=== PATIENT | female | born 1955 | race Caucasian/White ===

== ENCOUNTER → 2022-11-28 10:47 | Outpatient (CLI) | payer MEDICARE, OTHER, SELFPAY ==
--- NOTE | 2022-11-28 | DI.MG.S_ITS ---
BILATERAL DIGITAL SCREENING MAMMOGRAM 3D/2D WITH CAD: 11/28/2022 CLINICAL: Baseline exam. No prior exams were available for comparison. There are scattered areas of fibroglandular density in both breasts (category b / 25%-50% glandular tissue). Current study was also evaluated with a Computer Aided Detection (CAD) system. No significant masses, calcifications, or other findings are seen in either breast. IMPRESSION: NEGATIVE There is no mammographic evidence of malignancy. A 1 year screening mammogram is recommended. Based on the Tyrer Cuzick model (a risk assessment model) the patient's lifetime risk is 5.9% and her 10 year risk is 3.5%. According to the ACR, ACS, and NCCN guidelines, an annual breast MRI exam along with mammogram is recommended if the patient's lifetime risk is 20% or greater. This exam was interpreted at Station ID: [id number]. NOTE: For mammograms, a report in lay terms will be sent to the patient. Approximately 15% of breast malignancies will not be visualized mammographically. In the management of a palpable breast mass, a negative mammogram must not discourage biopsy of a clinically suspicious lesion. Electronically Signed By: Emile Lazo M.D., jr/adelso:11/28/2022 12:18:03 letter sent: Normal Exam ACR BI-RADS Category 1: Negative [id number]
== END ==
PROVIDERS: PCP Family Medicine; Referring Provider Family Medicine; Visit Provider Family Medicine
DX: Z12.31 Encounter for screening mammogram for malignant neoplasm of breast (principal)
CPT/HCPCS: 77063; 77067

== ENCOUNTER → 2023-01-02 10:51 | Outpatient (CLI) | payer MEDICARE, OTHER, SELFPAY ==
[2023-01-02 11:53] LABS: Hemoglobin 14.6 g/dL (12.0-16.0)
== END ==
PROVIDERS: Family Medicine; PCP Family Medicine; Referring Provider Surgery; Visit Provider Surgery
DX: Z01.818 Encounter for other preprocedural examination (principal); D64.9 Anemia, unspecified
CPT/HCPCS: 36415; 85014; 85018

== ENCOUNTER → 2023-03-26 11:35 | Outpatient (CLI) | payer MEDICARE, OTHER, SELFPAY ==
[2023-03-26 20:02] LABS: Add Manual Diff / Slide Review NO; Basophils Absolute Auto 0 /uL (0-100); Basophils Percent Auto 0.8 % (0-2); Eosinophils Absolute Auto 100 /uL (0-450); Eosinophils Percent Auto 2.1 % (2-4); Hematocrit 41.1 % (36-46); Hemoglobin 14.1 g/dL (12.0-16.0); Lymphocytes Absolute Auto 1200 /uL (1100-4500); Lymphocytes Percent Auto 21.8 % (25-40); Mean Corpuscular HGB Conc 34.2 % (30-36); Mean Corpuscular Hemoglobin 31.5 PG (26-34); Monocytes Absolute Auto 600 /uL (0-900); Monocytes Percent Auto 9.9 % (3-14); Neutrophils Absolute Auto 3800 /uL (1500-7000); Neutrophils Percent Auto 65.4 % (50-75); Platelet Count 199 X10^3/uL (150-400); Red Blood Cell Count 4.47 X10^6/uL (4.0-5.2); Red Cell Distribution Width 12.8 % (11.6-14.8); White Blood Cell Count 5.7 X10^3/uL (4.5-11.0)
[2023-03-26 20:07] LABS: Alanine Aminotransferase 20 IU/L (<35); Albumin 4.2 g/dL (3.5-5.0); Albumin Globulin Ratio 1.7 (1.0-2.8); Alkaline Phosphatase 82 U/L (38-126); Aspartate Aminotransferase 25 IU/L (14-36); BUN Creatinine Ratio 16.3 (6-22); Bilirubin Total 0.6 mg/dL (0.2-1.3); Blood Urea Nitrogen 14 mg/dL (7-17); Calcium 9.4 mg/dL (8.4-10.2); Carbon Dioxide 25 mmol/L (22-32); Chloride 103 mmol/L (98-107); Estimated Glomerular Filt Rate > 60 mL/min (>60); Globulin 2.5 g/dL (1.7-4.1); Glucose 98 mg/dL (80-110); HEMOLYSIS < 15 (0-50); Potassium 4.3 mmol/L (3.4-5.1); Sodium 135 mmol/L (137-145); Total Protein 6.7 g/dL (6.3-8.2)
== END ==
PROVIDERS: PCP Family Medicine; Visit Provider Family Medicine
DX: R10.11 Right upper quadrant pain (principal)
CPT/HCPCS: 80053; 85025

== ENCOUNTER → 2023-04-01 11:04 | Outpatient (CLI) | payer MEDICARE, OTHER, SELFPAY ==
--- NOTE | 2023-04-01 11:05 | DI.US.S_ITS ---
PROCEDURE: US ABDOMEN LIMITED INDICATIONS: RUQ PAIN TECHNIQUE: Real-time scanning was performed of the abdominal and retroperitoneal organs, with image documentation. COMPARISON: None. FINDINGS: Liver: Homogeneous echotexture. No evidence of focal mass lesion. No intra hepatic biliary ductal dilatation Gallbladder: Sonolucent without cholelithiasis. No gallbladder wall thickening. No pericholecystic fluid or Hebert's sign. Common Bile Duct: 1.4 mm. Pancreas: Unremarkable as visualized IMPRESSION: 1. Unremarkable right upper quadrant ultrasound Approved by: Leo Olson M.D. on 04/01/2023 at 11:23
== END ==
PROVIDERS: PCP Family Medicine; Referring Provider Family Medicine; Visit Provider Family Medicine
DX: R10.11 Right upper quadrant pain (principal)
CPT/HCPCS: 76705

== ENCOUNTER 2023-06-26 09:52 | Emergency (ER) | payer MEDICARE, OTHER, SELFPAY ==
[2023-06-26 09:55] VITALS: BP 138/61; PULSE 82; RESP 15; TEMP 36.7; O2SAT 100; BMI 32.3
--- NOTE | 2023-06-26 09:59 | PC.NURSE ---
Pt denies injury,pt denies loss bowel/bladder,denies urinary sx.
--- NOTE | 2023-06-26 10:23 | ED.BACK ---
HPI - Back Pain/Injury General Chief Complaint: Back Pain/Injury Stated Complaint: Back pain, no trauma Time Seen by Provider: 06/26/23 09:59 Source: patient Mode of arrival: Ambulatory Limitations: no limitations History of Present Illness HPI Narrative: Patient is a 67-year-old female who is here for evaluation of bilateral with the right being greater than left lower back discomfort. She states that it started earlier this week after she spent some time outside working in the garden. Did not fall. She has had lower back surgeries in the past. No fevers. No urinary symptoms. No change in bowel habits. No abdominal pain. Has been taking Advil but she states last night she had a difficult time sleeping and specifically moving around. Related Data Previous Rx's Medication Instructions Recorded albuterol sulfate 90 mcg/actuation 2 puff inhalation Q4-6H PRN 05/05/23 aerosol inhaler shortness of breath or wheezing #8.5 grams inhalational spacing device #1 ea 05/05/23 (BreatheRite MDI Spacer) prednisone 20 mg tablet See Rx Instructions PO DAILY #12 05/05/23 tabs codeine 10 mg-guaifenesin 100 mg/5 10 ml PO Q4-6H PRN cough #237 mL 05/08/23 mL oral liquid nitrofurantoin macrocrystal 100 mg 100 mg PO Q12H #14 caps 05/09/23 capsule estradiol 0.0375 mg/24 hr weekly 1 patch transdermal QWEEK #12 ea 05/13/23 transdermal patch cyclobenzaprine 10 mg tablet 10 mg PO TID PRN muscle spasm #21 06/26/23 tabs tramadol 50 mg tablet 50 mg PO Q6H PRN pain #21 tabs 06/26/23 Allergies Allergy/AdvReac Type Severity Reaction Status Date / Time No Known Drug Allergies Allergy Verified 06/26/23 09:55 Review of Systems Constitutional Constitutional: Reports system reviewed and no additional complaints, except as documented Cardiovascular Cardiovascular: Reports system reviewed and no additional complaints, except as documented Respiratory Respiratory: Reports system reviewed and no additional complaints, except as documented Gastrointestinal Gastrointestinal: Reports system reviewed and no additional complaints, except as documented Genitourinary Genitourinary: Reports system reviewed and no additional complaints, except as documented Integumentary/Breasts Skin/Breast: Reports system reviewed and no additional complaints, except as documented Patient History Medical History Hot flashes due to menopause Menopause Right rotator cuff tendinitis Surgical History (Updated 05/05/23 @ 22:24 by Lizzy Werner MD) History of hysterectomy Family History (Updated 05/05/23 @ 22:25 by Lizzy Werner MD) Sister Asthma Social History Smoking Status: Never smoker additional social history: Denies tobacco use 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 She does have bilateral lower back discomfort with what appears to be muscle spasms specifically in the right paraspinal region. Neuro General: patient alert and patient awake Extrem General: normal to inspection and capillary refill normal Course Vital Signs Vital signs: Vital Signs - 8 hr 06/26/23 09:55 Temperature 98.0 F Pulse Rate 82 Respiratory Rate 15 Blood Pressure 138/61 Pulse Oximetry 100 Oxygen Delivery Method Room Air MDM - Back Pain/Injury MDM Narrative Medical decision making narrative: Physical exam today is most consistent with a lower back muscle spasm. She does have bilateral symptoms but it is right is greater than the left. Plan to be is to send her home with muscle relaxers and also pain medication. She was given return precautions follow-up instructions. She expressed understanding and agreement. Discharge Plan Departure Patient Disposition: Home Clinical Impression: Lower back pain, Muscle spasm Instructions: DI for Low Back Pain Activity Restrictions/Additional Instructions: I do recommend that you use the muscle relaxers in the pain medication as directed. I also recommend you contact your primary provider for follow-up as you may benefit from a referral to see Physical therapy. Return to the emergency department for new symptoms. Prescriptions: New cyclobenzaprine 10 mg tablet 10 mg PO TID PRN (Reason: muscle spasm) Qty: 21 0RF tramadol 50 mg tablet 50 mg PO Q6H PRN (Reason: pain) Qty: 21 0RF No Action codeine-guaifenesin 10-100 mg/5 mL liquid 10 ml PO Q4-6H PRN (Reason: cough) Qty: 237 0RF estradiol 0.0375 mg/24 hr patch weekly 1 patch transdermal QWEEK Qty: 12 3RF Rx Instructions: Sandoz brand. prednisone 20 mg tablet See Rx Instructions PO DAILY Qty: 12 0RF Rx Instructions: 3 tabs po Qd for 2d(take all tabs at same time), then 2 tabs qd for 3d. orally daily; albuterol sulfate 90 mcg/actuation HFA aerosol inhaler 2 puff inhalation Q4-6H PRN (Reason: shortness of breath or wheezing) Qty: 8.5 2RF Rx Instructions: or cough (DME) BreatheRite MDI Spacer Spacer See Rx Instructions .Route Qty: 1 1RF Rx Instructions: As directed with inhaler nitrofurantoin macrocrystal 100 mg capsule 100 mg PO Q12H Qty: 14 0RF Rx Instructions: must administer with a meal/food for 7 days for urine infection Referrals: Jarad Ramos MD [Primary Care Provider] - Stand Alone Forms: Patient Portal/API
== END 2023-06-26 10:35 | disposition home or self-care (01) ==
PROVIDERS: Emergency Provider Emergency Medicine; PCP Family Medicine
DX: M54.50 Low back pain, unspecified (principal); M62.830 Muscle spasm of back
CPT/HCPCS: 99281; 99283

== ENCOUNTER 2023-08-05 09:45 | Emergency (ER) | payer MEDICARE, OTHER, SELFPAY ==
[2023-08-05] VITALS (15 sets, daily range): BP systolic 139–160; BP diastolic 62–79; PULSE 80–101; RESP 16–20; TEMP 36.8; O2SAT 93–99; BMI 32.3
--- NOTE | 2023-08-05 10:17 | DI.RAD.S_ITS ---
PROCEDURE: XR CHEST 2V INDICATIONS: cough x 2 weeks TECHNIQUE: 2 views of the chest were acquired. COMPARISON: [facility] ([place]), CR, XR CHEST 2V, 05/05/2023, 16:05. FINDINGS: Surgical changes and devices: None. Lungs and pleura: Lungs are clear. No pleural effusions or pneumothorax. Mediastinum: Mediastinal contours are normal. Heart size is normal. Bones and chest wall: No suspicious bony abnormalities. Soft tissues appear unremarkable. IMPRESSION: No acute radiographic abnormality. Dictated by: Marin Roche M.D. on 08/05/2023 at 11:41 Approved by: Marin Roche M.D. on 08/05/2023 at 11:42
[2023-08-05] MEDS: BENZONATATE 100 MG CAPSULE PO (10:25)
[2023-08-05] MEDS: ALBUTEROL 2.5 MG/3 ML NEB (ADULT) INH (11:11)
[2023-08-05] MEDS: ALBUTEROL/IPRATROPIUM 3 ML AMPUL INH (13:30)
[2023-08-05] MEDS: ALBUTEROL 2.5 MG/3 ML NEB (ADULT) 20 MG INH (13:59)
--- NOTE | 2023-08-05 14:19 | ED.URI ---
HPI - URI/Sore Throat <Destiny Riggins PA-C - Last Filed: 08/05/23 16:23> General Chief Complaint: Upper Respiratory Symptoms Stated Complaint: breathing issue T-14 getting worse Time Seen by Provider: 08/05/23 13:35 History of Present Illness HPI Narrative: Patient is a 68-year-old female with a remote history of asthma who presents with cough, chest congestion, and shortness of breath. This has been going on for 2 weeks. She reports it is difficult to do her daily activities because she becomes short of breath. She denies fever or chills, chest pain, nausea/vomiting, swelling in her extremities. She has no cardiac history. She reports an episode of similar respiratory symptoms in April of this year, where she was seen at the [facility]. He received oral steroids, albuterol inhaler, and antibiotics, which she reports did not really help in her opinion and the symptoms went away after 1 month. She is not a smoker. Related Data Previous Rx's Medication Instructions Recorded albuterol sulfate 90 mcg/actuation 2 puff inhalation Q4-6H PRN 05/05/23 aerosol inhaler shortness of breath or wheezing #8.5 grams inhalational spacing device #1 ea 05/05/23 (BreatheRite MDI Spacer) estradiol 0.0375 mg/24 hr weekly 1 patch transdermal QWEEK #12 ea 05/13/23 transdermal patch albuterol sulfate 90 mcg/actuation 2 puff inhalation Q4H PRN 08/05/23 aerosol inhaler shortness of breath or wheezing #8.5 grams codeine 10 mg-guaifenesin 100 mg/5 10 ml PO .qhs PRN cough #70 mL 08/05/23 mL oral liquid prednisone 50 mg tablet 50 mg PO DAILY #5 tabs 08/05/23 Allergies Allergy/AdvReac Type Severity Reaction Status Date / Time No Known Drug Allergies Allergy Verified 08/05/23 10:16 Review of Systems <Destiny Riggins PA-C - Last Filed: 08/05/23 16:23> Review of Systems ROS Unobtainable: All systems reviewed & are unremarkable except as noted in HPI and below Patient History <Destiny Riggins PA-C - Last Filed: 08/05/23 16:23> Medical History Hot flashes due to menopause Menopause Right rotator cuff tendinitis Surgical History History of hysterectomy Family History Sister Asthma Social History Smoking Status: Never smoker additional social history: Denies tobacco use 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 Well-developed patient, in moderate respiratory distress. NEURO: AOx3. HEAD: Atraumatic. Normocephalic. EYES: Pupils equal round and reactive. Extraocular motions intact. No scleral icterus. No injection or drainage. ENT: Nose without bleeding or purulent drainage. Airway patent. CARDIOVASCULAR: Regular rate and rhythm without murmurs, gallops, or rubs. RESPIRATORY: Diffuse rhonchi and mild expiratory wheeze on assessment after 1 DuoNeb and 1 albuterol neb. patient is quite dyspneic during our conversation. GASTROINTESTINAL: Abdomen soft, non-tender, nondistended. EXTREMITIES: No edema or joint tenderness. SKIN: No rash or erythema of visible areas Initial Vital Signs Initial Vital Signs: Vital Signs Temperature 98.2 F 08/05/23 10:12 Pulse Rate 89 08/05/23 10:12 Respiratory Rate 16 08/05/23 10:12 Blood Pressure 146/79 H 08/05/23 10:12 Pulse Oximetry 99 08/05/23 10:12 Oxygen Delivery Method Room Air 08/05/23 10:12 <Monica Fortune DO - Last Filed: 08/12/23 07:31> Initial Vital Signs Initial Vital Signs: Vital Signs Temperature 98.2 F 08/05/23 10:12 Pulse Rate 89 08/05/23 10:12 Respiratory Rate 16 08/05/23 10:12 Blood Pressure 146/79 H 08/05/23 10:12 Pulse Oximetry 99 08/05/23 10:12 Oxygen Delivery Method Room Air 08/05/23 10:12 Course <Destiny Riggins PA-C - Last Filed: 08/05/23 16:23> Orders Ordered: Discontinued Medications Albuterol (Albuterol 2.5 Mg/3 Ml Neb (Adult)) 2.5 mg INH NOW ONE Stop: 08/05/23 10:23 Last Admin: 08/05/23 11:11 Dose: 2.5 mg Documented By: ABDOUL Albuterol (Albuterol 2.5 Mg/3 Ml Neb (Adult)) 20 mg INH NOW ONE Stop: 08/05/23 13:56 Last Admin: 08/05/23 13:59 Dose: 20 mg Documented By: ABDOUL Albuterol/Ipratropium (Albuterol/Ipratropium 3 Ml Ampul) 3 ml INH NOW ONE Stop: 08/05/23 13:27 Last Admin: 08/05/23 13:30 Dose: 3 ml Documented By: ABDOUL Benzonatate (Benzonatate 100 Mg Capsule) 100 mg PO NOW ONE Stop: 08/05/23 10:23 Last Admin: 08/05/23 10:25 Dose: 100 mg Documented By: KANDI Vital Signs Vital signs: Vital Signs - 8 hr 08/05/23 10:12 08/05/23 11:12 08/05/23 11:15 Temperature 98.2 F Pulse Rate 89 87 80 Respiratory Rate 16 20 20 Blood Pressure 146/79 H 144/70 H Pulse Oximetry 99 97 98 Oxygen Delivery Method Room Air Room Air Room Air Oxygen Flow Rate 0 Fraction of Inspired Oxygen 21 08/05/23 11:14 08/05/23 11:30 08/05/23 11:30 Temperature Pulse Rate 90 83 Respiratory Rate Blood Pressure 141/62 H Pulse Oximetry 97 95 Oxygen Delivery Method Oxygen Flow Rate Fraction of Inspired Oxygen 08/05/23 12:00 08/05/23 12:00 08/05/23 12:30 Temperature Pulse Rate 82 Respiratory Rate Blood Pressure 139/63 139/65 Pulse Oximetry 96 Oxygen Delivery Method Oxygen Flow Rate Fraction of Inspired Oxygen 08/05/23 12:30 08/05/23 13:30 08/05/23 14:04 Temperature Pulse Rate 82 87 85 Respiratory Rate 18 18 Blood Pressure Pulse Oximetry 96 99 95 Oxygen Delivery Method Room Air Room Air Room Air Oxygen Flow Rate 0 0 Fraction of Inspired Oxygen 21 21 08/05/23 13:32 08/05/23 14:00 08/05/23 14:23 Temperature Pulse Rate 91 H 100 H Respiratory Rate Blood Pressure Pulse Oximetry 99 96 95 Oxygen Delivery Method Room Air Oxygen Flow Rate Fraction of Inspired Oxygen 08/05/23 14:23 08/05/23 14:30 08/05/23 14:30 Temperature Pulse Rate 94 H Respiratory Rate Blood Pressure 160/74 H 139/63 Pulse Oximetry 93 Oxygen Delivery Method Oxygen Flow Rate Fraction of Inspired Oxygen 08/05/23 15:00 08/05/23 15:00 08/05/23 15:30 Temperature Pulse Rate 94 H Respiratory Rate Blood Pressure 144/65 H 149/67 H Pulse Oximetry 96 Oxygen Delivery Method Oxygen Flow Rate Fraction of Inspired Oxygen 08/05/23 15:30 Temperature Pulse Rate 101 H Respiratory Rate Blood Pressure Pulse Oximetry 98 Oxygen Delivery Method Oxygen Flow Rate Fraction of Inspired Oxygen <Monica Fortune DO - Last Filed: 08/12/23 07:31> Orders Ordered: Discontinued Medications Albuterol (Albuterol 2.5 Mg/3 Ml Neb (Adult)) 2.5 mg INH NOW ONE Stop: 08/05/23 10:23 Last Admin: 08/05/23 11:11 Dose: 2.5 mg Documented By: ABDOUL Albuterol (Albuterol 2.5 Mg/3 Ml Neb (Adult)) 20 mg INH NOW ONE Stop: 08/05/23 13:56 Last Admin: 08/05/23 13:59 Dose: 20 mg Documented By: ABDOUL Albuterol/Ipratropium (Albuterol/Ipratropium 3 Ml Ampul) 3 ml INH NOW ONE Stop: 08/05/23 13:27 Last Admin: 08/05/23 13:30 Dose: 3 ml Documented By: ABDOUL Benzonatate (Benzonatate 100 Mg Capsule) 100 mg PO NOW ONE Stop: 08/05/23 10:23 Last Admin: 08/05/23 10:25 Dose: 100 mg Documented By: KANDI Vital Signs Vital signs: Vital Signs - 8 hr 08/05/23 10:12 08/05/23 11:12 08/05/23 11:15 Temperature 98.2 F Pulse Rate 89 87 80 Respiratory Rate 16 20 20 Blood Pressure 146/79 H 144/70 H Pulse Oximetry 99 97 98 Oxygen Delivery Method Room Air Room Air Room Air Oxygen Flow Rate 0 Fraction of Inspired Oxygen 21 08/05/23 11:14 08/05/23 11:30 08/05/23 11:30 Temperature Pulse Rate 90 83 Respiratory Rate Blood Pressure 141/62 H Pulse Oximetry 97 95 Oxygen Delivery Method Oxygen Flow Rate Fraction of Inspired Oxygen 08/05/23 12:00 08/05/23 12:00 08/05/23 12:30 Temperature Pulse Rate 82 Respiratory Rate Blood Pressure 139/63 139/65 Pulse Oximetry 96 Oxygen Delivery Method Oxygen Flow Rate Fraction of Inspired Oxygen 08/05/23 12:30 08/05/23 13:30 08/05/23 14:04 Temperature Pulse Rate 82 87 85 Respiratory Rate 18 18 Blood Pressure Pulse Oximetry 96 99 95 Oxygen Delivery Method Room Air Room Air Room Air Oxygen Flow Rate 0 0 Fraction of Inspired Oxygen 21 21 08/05/23 13:32 08/05/23 14:00 08/05/23 14:23 Temperature Pulse Rate 91 H 100 H Respiratory Rate Blood Pressure Pulse Oximetry 99 96 95 Oxygen Delivery Method Room Air Oxygen Flow Rate Fraction of Inspired Oxygen 08/05/23 14:23 08/05/23 14:30 08/05/23 14:30 Temperature Pulse Rate 94 H Respiratory Rate Blood Pressure 160/74 H 139/63 Pulse Oximetry 93 Oxygen Delivery Method Oxygen Flow Rate Fraction of Inspired Oxygen 08/05/23 15:00 08/05/23 15:00 08/05/23 15:30 Temperature Pulse Rate 94 H Respiratory Rate Blood Pressure 144/65 H 149/67 H Pulse Oximetry 96 Oxygen Delivery Method Oxygen Flow Rate Fraction of Inspired Oxygen 08/05/23 15:30 Temperature Pulse Rate 101 H Respiratory Rate Blood Pressure Pulse Oximetry 98 Oxygen Delivery Method Oxygen Flow Rate Fraction of Inspired Oxygen MDM - URI/Sore Throat <Destiny Riggins PA-C - Last Filed: 08/05/23 16:23> Lab Data 08/05/23 14:10 08/05/23 14:10 Labs: Lab Results 08/05/23 08/05/23 08/05/23 Range/Units 10:18 14:00 14:10 WBC 7.4 (4.5-11.0) X10^3/uL RBC 4.50 (4.0-5.2) X10^6/uL Hgb 14.1 (12.0-16.0) g/dL Hct 41.7 (36-46) % MCV 92.5 (80-100) fL MCH 31.4 (26-34) PG MCHC 33.9 (30-36) % RDW 13.6 (11.6-14.8) % Plt Count 218 (150-400) X10^3/uL Neut % (Auto) 65.2 (50-75) % Lymph % (Auto) 23.0 L (25-40) % [place] % (Auto) 9.6 (3-14) % Eos % (Auto) 1.7 L (2-4) % Baso % (Auto) 0.5 (0-2) % Neut # (Auto) 4800 (6515-5368) /uL Lymph # (Auto) 1700 (2254-2514) /uL [place] # (Auto) 700 (0-900) /uL Eos # (Auto) 100 (0-450) /uL Baso # (Auto) 0 (0-100) /uL Sodium (137-145) mmol/L Potassium (3.4-5.1) mmol/L Chloride (98-107) mmol/L Carbon Dioxide (22-32) mmol/L BUN (7-17) mg/dL Creatinine (0.52-1.04) mg/dL Estimated GFR (>60) mL/min BUN/Creatinine Ratio (6-22) Glucose (80-110) mg/dL Calcium (8.4-10.2) mg/dL Troponin I (0.01-0.034) ng/mL NT-Pro-B Natriuret Pep (<125) pg/mL Urine RBC None seen (0-5/HPF) Urine WBC 0-1/hpf (0-5/HPF) Ur Squamous Epith Cells 0-1 /hpf (0-5/HPF) Urine Bacteria Few (2-10) H (None) Ur Culture Indicated? Cult not indicated Chlamy pneumoniae PCR Not detected (Not Detect) Adenovirus (PCR) Not detected (Not Detect) B. pertussis DNA (PCR) Not detected (Not Detecte) B.parapertussis DNA PCR Not detected (Not Detecte) Coronavirus OC43 (PCR) Not detected (Not Detect) Coronavirus HKU1 (PCR) Not detected (Not Detect) Coronavirus 229E (PCR) Not detected (Not Detect) SARS-CoV-2 (PCR) Not detected (Not Detecte) Coronavirus NL63 (PCR) Not detected (Not Detect) Human Metapneumovir PCR Not detected (Not Detect) Influenza Type A (PCR) Not detected (Not Detect) Influenza Type B (PCR) Not detected (Not Detect) M. pneumoniae (PCR) Not detected (Not Detect) Parainfluenza 1 (PCR) Not detected (Not Detect) Parainfluenza 2 (PCR) Not detected (Not Detect) Parainfluenza 3 (PCR) Not detected (Not Detect) Parainfluenza 4 (PCR) Not detected (Not Detect) RSV (PCR) Not detected (Not Detect) Entero/Rhino (PCR) Not detected (Not Detect) 08/05/23 08/05/23 Range/Units 14:10 14:10 WBC (4.5-11.0) X10^3/uL RBC (4.0-5.2) X10^6/uL Hgb (12.0-16.0) g/dL Hct (36-46) % MCV (80-100) fL MCH (26-34) PG MCHC (30-36) % RDW (11.6-14.8) % Plt Count (150-400) X10^3/uL Neut % (Auto) (50-75) % Lymph % (Auto) (25-40) % [place] % (Auto) (3-14) % Eos % (Auto) (2-4) % Baso % (Auto) (0-2) % Neut # (Auto) (4427-4434) /uL Lymph # (Auto) (1916-1904) /uL [place] # (Auto) (0-900) /uL Eos # (Auto) (0-450) /uL Baso # (Auto) (0-100) /uL Sodium 137 (137-145) mmol/L Potassium 3.4 (3.4-5.1) mmol/L Chloride 104 (98-107) mmol/L Carbon Dioxide 23 (22-32) mmol/L BUN 14 (7-17) mg/dL Creatinine 0.86 (0.52-1.04) mg/dL Estimated GFR > 60 (>60) mL/min BUN/Creatinine Ratio 16.3 (6-22) Glucose 120 H (80-110) mg/dL Calcium 9.2 (8.4-10.2) mg/dL Troponin I < 0.012 (0.01-0.034) ng/mL NT-Pro-B Natriuret Pep 28 (<125) pg/mL Urine RBC (0-5/HPF) Urine WBC (0-5/HPF) Ur Squamous Epith Cells (0-5/HPF) Urine Bacteria (None) Ur Culture Indicated? Chlamy pneumoniae PCR (Not Detect) Adenovirus (PCR) (Not Detect) B. pertussis DNA (PCR) (Not Detecte) B.parapertussis DNA PCR (Not Detecte) Coronavirus OC43 (PCR) (Not Detect) Coronavirus HKU1 (PCR) (Not Detect) Coronavirus 229E (PCR) (Not Detect) SARS-CoV-2 (PCR) (Not Detecte) Coronavirus NL63 (PCR) (Not Detect) Human Metapneumovir PCR (Not Detect) Influenza Type A (PCR) (Not Detect) Influenza Type B (PCR) (Not Detect) M. pneumoniae (PCR) (Not Detect) Parainfluenza 1 (PCR) (Not Detect) Parainfluenza 2 (PCR) (Not Detect) Parainfluenza 3 (PCR) (Not Detect) Parainfluenza 4 (PCR) (Not Detect) RSV (PCR) (Not Detect) Entero/Rhino (PCR) (Not Detect) Urine Dip Bedside Urine Glucose Negative Bedside Urine Bilirubin - Negative Bedside Urine Ketone - Negative Urine Specific [place] 1.005 Bedside Urine Occult Blood +/- Bedside Urine pH 6.0 Bedside Urine Protein - Negative Bedside Urine Urobilinogen - Negative Bedside Urine Nitrite - Negative Bedside Urine Leukocytes - Negative Esterase Imaging Data Chest x-ray: Radiologist's Impression: PROCEDURE:? XR CHEST 2V ? INDICATIONS:? cough x 2 weeks ? TECHNIQUE:? 2 views of the chest were acquired.? ? COMPARISON:? [facility] ([facility]), CR, XR CHEST 2V, 05/05/2023, 16:05. ? FINDINGS:? ? Surgical changes and devices:? None.? ? Lungs and pleura:? Lungs are clear.? No pleural effusions or pneumothorax.? ? Mediastinum:? Mediastinal contours are normal.? Heart size is normal.? ? Bones and chest wall:? No suspicious bony abnormalities.? Soft tissues appear unremarkable.? ? ? IMPRESSION:? No acute radiographic abnormality. ? ? Dictated by: Marin Roche M.D. on 08/05/2023 at 11:41 ? ? Approved by: Marin Roche M.D. on 08/05/2023 at 11:42 ? MDM Narrative Medical decision making narrative: Multiple etiologies for patient's symptoms considered including, but not limited to: Asthma exacerbation, pneumonia, viral upper respiratory infection, CHF. Chest x-ray without any focal infiltrate, generalized haziness bilaterally. Respiratory status not much improved after DuoNeb and 1 albuterol neb; will trial continuous neb. will check labs including BNP and troponin, although CHF is less likely. Labs very reassuring, BNP and troponin normal. Viral panel negative. UA checked as patient reports a recent foul odor from her urine; urine dip reassuring. Respiratory status much improved after continuous albuterol neb. patient feels better as well. Will treat with 5 day course of oral steroids, home albuterol MDI, and codeine cough syrup for night for suspected asthma exacerbation. Patient's symptoms improved over duration of stay with above-stated therapies. Findings and discharge diagnosis discussed with patient/family followed by verbalization of understanding Return precautions discussed with patient/family whom verbalize understanding of diagnosis and plan <Monica Fortune, DO - Last Filed: 08/12/23 07:31> Lab Data Labs: Lab Results 08/05/23 08/05/23 08/05/23 Range/Units 10:18 14:00 14:10 WBC 7.4 (4.5-11.0) X10^3/uL RBC 4.50 (4.0-5.2) X10^6/uL Hgb 14.1 (12.0-16.0) g/dL Hct 41.7 (36-46) % MCV 92.5 (80-100) fL MCH 31.4 (26-34) PG MCHC 33.9 (30-36) % RDW 13.6 (11.6-14.8) % Plt Count 218 (150-400) X10^3/uL Neut % (Auto) 65.2 (50-75) % Lymph % (Auto) 23.0 L (25-40) % [place] % (Auto) 9.6 (3-14) % Eos % (Auto) 1.7 L (2-4) % Baso % (Auto) 0.5 (0-2) % Neut # (Auto) 4800 (1085-9729) /uL Lymph # (Auto) 1700 (5512-9879) /uL [place] # (Auto) 700 (0-900) /uL Eos # (Auto) 100 (0-450) /uL Baso # (Auto) 0 (0-100) /uL Sodium (137-145) mmol/L Potassium (3.4-5.1) mmol/L Chloride (98-107) mmol/L Carbon Dioxide (22-32) mmol/L BUN (7-17) mg/dL Creatinine (0.52-1.04) mg/dL Estimated GFR (>60) mL/min BUN/Creatinine Ratio (6-22) Glucose (80-110) mg/dL Calcium (8.4-10.2) mg/dL Troponin I (0.01-0.034) ng/mL NT-Pro-B Natriuret Pep (<125) pg/mL Urine RBC None seen (0-5/HPF) Urine WBC 0-1/hpf (0-5/HPF) Ur Squamous Epith Cells 0-1 /hpf (0-5/HPF) Urine Bacteria Few (2-10) H (None) Ur Culture Indicated? Cult not indicated Chlamy pneumoniae PCR Not detected (Not Detect) Adenovirus (PCR) Not detected (Not Detect) B. pertussis DNA (PCR) Not detected (Not Detecte) B.parapertussis DNA PCR Not detected (Not Detecte) Coronavirus OC43 (PCR) Not detected (Not Detect) Coronavirus HKU1 (PCR) Not detected (Not Detect) Coronavirus 229E (PCR) Not detected (Not Detect) SARS-CoV-2 (PCR) Not detected (Not Detecte) Coronavirus NL63 (PCR) Not detected (Not Detect) Human Metapneumovir PCR Not detected (Not Detect) Influenza Type A (PCR) Not detected (Not Detect) Influenza Type B (PCR) Not detected (Not Detect) M. pneumoniae (PCR) Not detected (Not Detect) Parainfluenza 1 (PCR) Not detected (Not Detect) Parainfluenza 2 (PCR) Not detected (Not Detect) Parainfluenza 3 (PCR) Not detected (Not Detect) Parainfluenza 4 (PCR) Not detected (Not Detect) RSV (PCR) Not detected (Not Detect) Entero/Rhino (PCR) Not detected (Not Detect) 08/05/23 08/05/23 Range/Units 14:10 14:10 WBC (4.5-11.0) X10^3/uL RBC (4.0-5.2) X10^6/uL Hgb (12.0-16.0) g/dL Hct (36-46) % MCV (80-100) fL MCH (26-34) PG MCHC (30-36) % RDW (11.6-14.8) % Plt Count (150-400) X10^3/uL Neut % (Auto) (50-75) % Lymph % (Auto) (25-40) % [place] % (Auto) (3-14) % Eos % (Auto) (2-4) % Baso % (Auto) (0-2) % Neut # (Auto) (3746-6613) /uL Lymph # (Auto) (0612-4029) /uL [place] # (Auto) (0-900) /uL Eos # (Auto) (0-450) /uL Baso # (Auto) (0-100) /uL Sodium 137 (137-145) mmol/L Potassium 3.4 (3.4-5.1) mmol/L Chloride 104 (98-107) mmol/L Carbon Dioxide 23 (22-32) mmol/L BUN 14 (7-17) mg/dL Creatinine 0.86 (0.52-1.04) mg/dL Estimated GFR > 60 (>60) mL/min BUN/Creatinine Ratio 16.3 (6-22) Glucose 120 H (80-110) mg/dL Calcium 9.2 (8.4-10.2) mg/dL Troponin I < 0.012 (0.01-0.034) ng/mL NT-Pro-B Natriuret Pep 28 (<125) pg/mL Urine RBC (0-5/HPF) Urine WBC (0-5/HPF) Ur Squamous Epith Cells (0-5/HPF) Urine Bacteria (None) Ur Culture Indicated? Chlamy pneumoniae PCR (Not Detect) Adenovirus (PCR) (Not Detect) B. pertussis DNA (PCR) (Not Detecte) B.parapertussis DNA PCR (Not Detecte) Coronavirus OC43 (PCR) (Not Detect) Coronavirus HKU1 (PCR) (Not Detect) Coronavirus 229E (PCR) (Not Detect) SARS-CoV-2 (PCR) (Not Detecte) Coronavirus NL63 (PCR) (Not Detect) Human Metapneumovir PCR (Not Detect) Influenza Type A (PCR) (Not Detect) Influenza Type B (PCR) (Not Detect) M. pneumoniae (PCR) (Not Detect) Parainfluenza 1 (PCR) (Not Detect) Parainfluenza 2 (PCR) (Not Detect) Parainfluenza 3 (PCR) (Not Detect) Parainfluenza 4 (PCR) (Not Detect) RSV (PCR) (Not Detect) Entero/Rhino (PCR) (Not Detect) Urine Dip Bedside Urine Glucose Negative Bedside Urine Bilirubin - Negative Bedside Urine Ketone - Negative Urine Specific [place] 1.005 Bedside Urine Occult Blood +/- Bedside Urine pH 6.0 Bedside Urine Protein - Negative Bedside Urine Urobilinogen - Negative Bedside Urine Nitrite - Negative Bedside Urine Leukocytes - Negative Esterase Discharge Plan Departure Patient Disposition: Home Clinical Impression: Asthma exacerbation Qualifiers: Asthma severity: moderate Instructions: DI for Asthma -- Adult Activity Restrictions/Additional Instructions: *You have been diagnosed with asthma exacerbation. I will send prescriptions for oral steroids to calm the inflammation in your lungs and an albuterol inhaler to use when you are feeling short of breath. I have also send a cough syrup to use at night. If you are not seeing improvement after 3 days or develop chest pain or significant shortness of breath or fever, please seek care in the clinic or emergency room. *What to do: *Please continue to take your regular medications as directed. [x ] New medication prescriptions sent to your pharmacy: [facility] [ ] New medication written as a paper prescription [ ] No new medications given *Please follow up with your primary care provider in 2-3 days, call for an appointment. Let them know you were seen in the Emergency Department and that we ask that you be seen in follow up. We will electronically transmit a record of today's note if your PCP is in our system *If you do not have a primary care provider please contact the [facility] Resource line at [phone]. They will ask some questions about your medical history and help get you set up with a doctor in the community. *Return to Emergency Department if you should have any new, worsening or concerning symptoms, such as [fever greater than 101 F, shaking chills, worsening pain, persistent vomiting or other concerning symptoms]. Prescriptions: New prednisone 50 mg tablet 50 mg PO DAILY Qty: 5 0RF albuterol sulfate 90 mcg/actuation HFA aerosol inhaler 2 puff inhalation Q4H PRN (Reason: shortness of breath or wheezing) Qty: 8.5 2RF Rx Instructions: use with spacer codeine-guaifenesin 10-100 mg/5 mL liquid 10 ml PO .qhs PRN (Reason: cough) Qty: 70 0RF No Action estradiol 0.0375 mg/24 hr patch weekly 1 patch transdermal QWEEK Qty: 12 3RF Rx Instructions: Sandoz brand. albuterol sulfate 90 mcg/actuation HFA aerosol inhaler 2 puff inhalation Q4-6H PRN (Reason: shortness of breath or wheezing) Qty: 8.5 2RF Rx Instructions: or cough (DME) BreatheRite MDI Spacer Spacer See Rx Instructions .Route Qty: 1 1RF Rx Instructions: As directed with inhaler Referrals: Jarad Ramos MD [Primary Care Provider] - Stand Alone Forms: Patient Portal/API <Monica Fortune DO - Last Filed: 08/12/23 07:31> Cosign ED Attending Oh Attestation: I was immediately available in the department for consultation. Documentation has been reviewed.
[2023-08-05 14:20] LABS: Add Manual Diff / Slide Review NO; Basophils Absolute Auto 0 /uL (0-100); Basophils Percent Auto 0.5 % (0-2); Eosinophils Absolute Auto 100 /uL (0-450); Eosinophils Percent Auto 1.7 % (2-4); Hematocrit 41.7 % (36-46); Hemoglobin 14.1 g/dL (12.0-16.0); Lymphocytes Absolute Auto 1700 /uL (1100-4500); Mean Corpuscular HGB Conc 33.9 % (30-36); Mean Corpuscular Hemoglobin 31.4 PG (26-34); Mean Corpuscular Volume 92.5 fL (80-100); Monocytes Absolute Auto 700 /uL (0-900); Monocytes Percent Auto 9.6 % (3-14); Neutrophils Absolute Auto 4800 /uL (1500-7000); Neutrophils Percent Auto 65.2 % (50-75); Platelet Count 218 X10^3/uL (150-400); Red Cell Distribution Width 13.6 % (11.6-14.8); White Blood Cell Count 7.4 X10^3/uL (4.5-11.0)
[2023-08-05 14:29] LABS: Adenovirus Not Detected (Not Detect); B. parapertussis Not Detected (Not Detecte); Bordetella pertussis Not Detected (Not Detecte); Chlamydophila pneumoniae Not Detected (Not Detect); Coronavirus 229E Not Detected (Not Detect); Coronavirus HKU1 Not Detected (Not Detect); Coronavirus NL 63 Not Detected (Not Detect); Coronavirus OC43 Not Detected (Not Detect); Human Metapneumovirus Not Detected (Not Detect); Human Rhinovirus/Enterovirus Not Detected (Not Detect); Influenza A Not Detected (Not Detect); Influenza B Not Detected (Not Detect); Mycoplasma pneumoniae Not Detected (Not Detect); Parainfluenza Virus 1 Not Detected (Not Detect); Parainfluenza Virus 2 Not Detected (Not Detect); Parainfluenza Virus 3 Not Detected (Not Detect); Parainfluenza Virus 4 Not Detected (Not Detect); Respiratory Syncytial Virus Not Detected (Not Detect); SARS- CoV-2 Not Detected (Not Detecte)
[2023-08-05 14:29] LABS: Bacteria Urine Few (2-10); Culture Indicated Urine Cult Not Indicated; RBC Urine None Seen (0-5/HPF); Squamous Epithelial Cell Urine 0-1 /HPF (0-5/HPF); WBC Urine 0-1/HPF (0-5/HPF)
[2023-08-05 14:31] LABS: HEMOLYSIS < 15 (0-50)
[2023-08-05 14:37] LABS: BUN Creatinine Ratio 16.3 (6-22); Blood Urea Nitrogen 14 mg/dL (7-17); Calcium 9.2 mg/dL (8.4-10.2); Carbon Dioxide 23 mmol/L (22-32); Chloride 104 mmol/L (98-107); Estimated Glomerular Filt Rate > 60 mL/min (>60); Glucose 120 mg/dL (80-110); Potassium 3.4 mmol/L (3.4-5.1); Sodium 137 mmol/L (137-145)
[2023-08-05 14:47] LABS: NT-proBNP (BNP-Adult 18+) 28 pg/mL (<125)
[2023-08-05 14:59] LABS: Troponin I < 0.012 ng/mL (0.01-0.034)
== END 2023-08-05 15:59 | disposition home or self-care (01) ==
PROVIDERS: Emergency Medicine; Emergency Provider Physician Assistant; PCP Family Medicine
DX: J45.901 Unspecified asthma with (acute) exacerbation (principal); Z79.899 Other long term (current) drug therapy; Z20.822 Contact with and (suspected) exposure to COVID-19
CPT/HCPCS: 36415; 71046; 80048; 81003; 81015; 83880; 84484; 85025; 87086; 87633; 94640; 99284; J7613

== ENCOUNTER → 2024-07-13 | Outpatient (CLI) | payer MEDICARE, OTHER, SELFPAY ==
--- NOTE | 2024-07-13 15:12 | DI.MG.S_ITS ---
BILATERAL DIGITAL SCREENING MAMMOGRAM 3D/2D WITH CAD: 07/13/2024 CLINICAL: Routine screening. Family history of Breast Cancer. Comparison is made to exams dated: 11/28/2022 mammogram - [facility], 11/22/2019 mammogram, and 09/21/2018 mammogram. There are scattered areas of fibroglandular density in both breasts (category b / 25%-50% glandular tissue). Current study was also evaluated with a Computer Aided Detection (CAD) system. There are benign post operative findings in the right breast. No significant masses, calcifications, or other findings are seen in either breast. There has been no significant interval change. IMPRESSION: BENIGN There is no mammographic evidence of malignancy. A 1 year screening mammogram is recommended. Based on the Tyrer Cuzick model (a risk assessment model) the patient's lifetime risk is 10.2% and her 10 year risk is 7.1%. According to the ACR, ACS, and NCCN guidelines, an annual breast MRI exam along with mammogram is recommended if the patient's lifetime risk is 20% or greater. This exam was interpreted at Station ID: [id number]. NOTE: For mammograms, a report in lay terms will be sent to the patient. Approximately 15% of breast malignancies will not be visualized mammographically. In the management of a palpable breast mass, a negative mammogram must not discourage biopsy of a clinically suspicious lesion. Electronically Signed By: Ileana Aguilar M.D., Ph.D. [email or web address]/[email or web address]:07/15/2024 10:56:36 letter sent: Normal Exam ACR BI-RADS Category 2: Benign Finding(s) [id number]
== END ==
LOC: MAMMO 15:12
PROVIDERS: PCP Family Medicine; Referring Provider Family Medicine; Visit Provider Family Medicine
DX: Z12.31 Encounter for screening mammogram for malignant neoplasm of breast (principal); Z80.3 Family history of malignant neoplasm of breast; R92.323 Mammographic fibroglandular density, bilateral breasts
CPT/HCPCS: 77063; 77067

== ENCOUNTER → 2025-06-02 10:54 | Outpatient (CLI) | payer MEDICARE, OTHER, SELFPAY ==
[2025-06-02 19:36] LABS: Add Manual Diff / Slide Review NO; Hematocrit 41.2 % (36-46); Hemoglobin 14.3 g/dL (12.0-16.0); Lymphocytes Absolute Auto 1100 /uL (1100-4500); Mean Corpuscular HGB Conc 34.7 % (30-36); Mean Corpuscular Hemoglobin 32.2 PG (26-34); Mean Corpuscular Volume 92.9 fL (80-100); Platelet Count 232 X10^3/uL (150-400)
[2025-06-02 19:44] LABS: Alanine Aminotransferase 15 IU/L (<35); Albumin 4.0 g/dL (3.5-5.0); Albumin Globulin Ratio 1.7 (1.0-2.8); Alkaline Phosphatase 88 U/L (38-126); Blood Urea Nitrogen 11 mg/dL (7-17); Calcium 9.4 mg/dL (8.4-10.2); Carbon Dioxide 24 mmol/L (22-32); Chloride 104 mmol/L (98-107); Cholesterol 228 mg/dL (140-199); Estimated Glomerular Filt Rate > 60 mL/min (>60); Globulin 2.4 g/dL (1.7-4.1); Glucose 97 mg/dL (70-99); HDL Cholesterol 57 mg/dL (40-60); HEMOLYSIS < 15 (0-50); Potassium 4.3 mmol/L (3.4-5.1); Sodium 136 mmol/L (137-145); Total Protein 6.4 g/dL (6.3-8.2); Triglycerides 107 mg/dL (35-150)
[2025-06-02 20:14] LABS: TSH w/ Reflex to FT4 1.27 uIU/mL (0.47-4.68)
== END ==
PROVIDERS: PCP Family Medicine; Visit Provider Family Medicine
DX: R00.2 Palpitations (principal); Z13.6 Encounter for screening for cardiovascular disorders; R06.02 Shortness of breath; F41.1 Generalized anxiety disorder
CPT/HCPCS: 80053; 80061; 84443; 85025

== ENCOUNTER → 2025-08-01 09:07 | Outpatient (CLI) | payer MEDICARE, OTHER, SELFPAY ==
[2025-08-01 20:11] LABS: Cortisol AM (Before 10AM) 10.1 ug/dL (4.46-22.7)
== END ==
PROVIDERS: PCP Family Medicine; Visit Provider Family Medicine
DX: F41.0 Panic disorder [episodic paroxysmal anxiety] (principal); R53.83 Other fatigue
CPT/HCPCS: 82533

== ENCOUNTER → 2025-08-22 09:12 | Outpatient (CLI) | payer MEDICARE, OTHER, SELFPAY ==
[2025-08-22 18:50] LABS: Cholesterol 204 mg/dL (140-199); HDL Cholesterol 73 mg/dL (40-60); Triglycerides 95 mg/dL (35-150)
== END ==
PROVIDERS: PCP Family Medicine; Visit Provider Family Medicine
DX: E78.5 Hyperlipidemia, unspecified (principal)
CPT/HCPCS: 80061